=== PATIENT | female | born 1985 | race Caucasian/White ===

== ENCOUNTER 2021-11-05 06:11 | Inpatient (IN) | payer OTHER, SELFPAY ==
[2021-11-05] VITALS (87 sets, daily range): BP systolic 89–133; BP diastolic 44–92; PULSE 44–171; RESP 15–18; TEMP 36.4–37; O2SAT 90–100; BMI 27.8
[2021-11-05] MEDS: LACTATED RINGERS 1000 ML 1,000 ML 125 ML IV ×3 (06:59→15:34)
[2021-11-05] MEDS: AMPICILLIN 2 GM in 0.9 % SODIUM CHLORIDE Mini-bag 100 ML IVPB (07:04)
[2021-11-05] MEDS: OXYTOCIN 30 unit/500 ML in NS 30 UNIT/500 ML BAG IVPB (07:15)
--- NOTE | 2021-11-05 07:26 | P.OBHP_ITS ---
OB - H&P: HPI Labor/Induction History of Present Illness Chief complaint: MATERNITY : 3 Para: 1 Indications for induction: other (elective) Narrative: Peg Beaulieu is a 36 year old female History of Present Dating criteria: based on LMP care: good care Ultrasounds: normal 1st trimester US Medical complications: none Narrative: Louisa 3 P 1011 : Blayne; Son: Blayne Jade is her sister Flu vaccine: received Covid vaccine: recommended 05/05/21, declines 1. History of Gestational HTN with first . Sister has h/o pre E -recommended baby ASA 2. Genital warts present at first OB visit 3. Pilonidal cyst 06/02/2021: I&D - Dr. Ladd 4. EFW 94% and bilateral pelviectasis (5 mm on the right and 4 mm on the left) on anatomy scan. Repeat ultrasound 08/22/2021: EFW 63%, BPD 82%, HC >97%, FL 24%. Transverse, SDP 4.4 cm, renal pelves normal. 5. Elevated 1 hr GTT. 3 hr GTT entirely normal. Labs Blood type: O (+) positive GBS status: positive Review of Systems Status of ROS: Reports: 6 or more systems reviewed and unremarkable except as noted in History and below PFSH PFSH Social History Smoking Status: Never smoker Meds Home Medications and Allergies Home Medications Medication Instructions Recorded Confirmed Type [id number]-map-[id number]-FA 1 mg 1 tab PO DAILY PRN 11/05/21 11/05/21 History tablet Allergies Allergy/AdvReac Type Severity Reaction Status Date / Time No Known Drug Allergies Allergy Verified 11/05/21 08:41 OB - H&P: Exam Physical Exam: Vital signs: WNL Constitutional: Constitutional: no acute distress Routine HEENT Exam: Head: Present atraumatic and normal inspection Routine Neck Exam: Neck: Present full ROM Routine Respiratory Exam: Respiratory: Present CTA bilaterally Routine Cardiovascular Exam: Cardiovascular: RRR Routine Abdominal Exam: Comments: gravid Detailed Labor and Delivery Exam: Patient Gravid: yes Dilation (cm): 3 (per RN) Effacement (%): 60 Contraction frequency (min): 7 (4-7) Contraction intensity: Moderate Fetus (Single): Station: -2 Heart Rate Baseline: 130 Monitor Accelerations: Present Monitor Decelerations: None Environmental Solutions Engineer Variability: Moderate (11-25) Routine Extremities Exam: Extremities: Present normal inspection Routine Back/Spine/Pelvis Exam: Back/Spine: full ROM Routine Neurological Exam: Present alert and oriented X3 OB - Problem Based A/P Additional Plan (1) : Status: Acute Plan ASSESSMENT:? at 39.0 weeks gestation? GBS positive? Uncomplicated ? Elective IOL for social reasons ?? PLAN:? 1. Antibiotic prophylaxis treatment per protocol? 2. Plan made with Dr. Minaya in clinic for Pitocin and AROM after the second dose of antibiotics. Pt agreeable with this plan. Will plan for AROM around noon. 3. Candidate for analgesia of choice. Planning epidural. May have when desires. 4. Anticipate . ? Delivery/Labor/Induction Plan Plan: induction Induction method: per pitocin protocol
[2021-11-05 08:51] LABS: Hemoglobin* 13.2 gm/dL (12.0-16.0)
[2021-11-05 08:54] LABS: SARS PCR* Negative SARS-CoV-2 (Negative)
[2021-11-05] MEDS: ROPIVACAINE 0.2 % PF 10 ML INJ 20 MG EPIDURAL (09:36)
[2021-11-05] MEDS: ROPIVACAINE 0.2% 100 ml 100 ML 12 MG EPIDURAL (09:45)
--- NOTE | 2021-11-05 10:01 | P.ANBPRC_ITS ---
Anesthesia Procedures Epidural Insertion Patient Location: OB Start Time: 09:18 Stop Time: 10:18 Start Date: 11/05/21 Stop Date: 11/05/21 Reason for Block: primary anesthetic Patient Position: sitting Performed By: Daniel Swift Preanesthetic Checklist: IV checked, risks and benefits discussed, surgical consent, monitors and equipment checked, pre-op evaluation, timeout performed and anesthesia consent Prep: chlorhexidine gluconate Monitoring: blood pressure monitoring, dealer compliance representative, continuous pulse oximetry and heart rate Approach: midline Vertebral Space: lumbar (1-5) Epidural Technique: ESHA saline Needle Type: Tuohy needle Injection Technique: continuous shot (catheter) Needle gauge: 17 Needle Length (cm): 10 cm Needle Insertion Depth (cm): 5 Catheter Gauge: 19 Catheter Type: multi-orifice Catheter at skin depth (cm): 11 Test Dose Result: negative and lidocaine 1.5% with epinephrine 1 to 200,000
--- NOTE | 2021-11-05 10:03 | PM.ANPROEV ---
PFSH PFS Social History Smoking Status: Never smoker Meds Home Medications and Allergies Allergies Allergy/AdvReac Type Severity Reaction Status Date / Time No Known Drug Allergies Allergy Verified 11/05/21 08:41 Results Labs Labs: Short CBC 11/05/21 Range/Units 06:45 Hgb 13.2 (12.0-16.0) gm/dL Focused Exam Airway Mallampti: II TM distance: <3 FB Neck ROM: full Anesthesia Risk Status Procedure Time Seen by Provider: 09:17 Date Seen: 11/05/21 History Anesthesia history: epidural History of anesthesia reactions: No Family history of reaction to anesthesia: No Status Dentition: intact/complete Risk Assessed to be at risk for difficult intubation: No Assessment and Plan Assessment and plan (1) : Status: Acute Plan Ok for Epidural. Epidural placed without difficulty.
[2021-11-05] MEDS: AMPICILLIN 1 GM in 0.9 % SODIUM CHLORIDE Mini-bag 100 ML IVPB ×2 (10:50→14:54)
--- NOTE | 2021-11-05 12:50 | PM.OBPNL ---
Pain Control Pain control: epidural Contractions Monitor mode: External Contraction frequency: 4 (2-4) Contraction pattern: Regular Contraction intensity: Strong/Firm Pelvic Exam Dilation (cm): 8 (per RN) Effacement (%): 90 Fetus (Single) Station: 0 Amniotic Membrane Status: SROM (SROM during SVE) status: Category ll Comments: About a 2 min deceleration to the 90's immediately after SROM. Position changes and pitocin turned off. FSE applied. Return of baseline to 115-120 with good variability. Assessment and Plan Pitocin rate (mU/min): 0 Assessment: active labor and induction ongoing Plan: continue present management Comments: Assessment:?? 36 at 39 weeks gestation?? Patient is coping WELL with challenges of labor.?? Labor type: Induced, Active labor? Category 1 FHR pattern.?? Labor complicated by: Elective IOL for social reasons? ? Plan:?? Continue with routine intrapartum cares as ordered.?? Patient encouraged to change positions with assistance from the RN to promote physiologic labor and .?? Epidural in place and is working effectively. Denies pressure or urge to push Will reevaluate patient again as needed.?? Anticipate vaginal .?? ?
--- NOTE | 2021-11-05 17:31 | PM.OBPRCVD ---
Procedure Procedure Done: only Events: Labor Induction Intrapartal Events: Labor Induction Induction method: per pitocin protocol Delivery monitor: external FHT, external uterine and internal FHT Route of delivery: Episiotomy description: None Laceration description: Perineal - 1st Degree Delivery repair: Vicryl Estimated blood loss (mL): 225 Anesthesia type: Epidural Disposition: floor [place] Infant Infant Gender: Male presentation: vertex Placental Delivery Description: Spontaneous Cord Description: 3 Vessels [place] A Gender: Male Placental Delivery: Spontaneous Cord Description: 3 Vessels OB Vag Delivery Procedures Additional Procedures Laceration Repair: Yes Procedure Details: Patient is a 36 year-old admitted on Nov 03, 2021 at 23:40 at 39 Weeks, 2 Days gestation for elective IOL.? Cervical exam on admission was 3 cm/60 % effaced/-2 station with membranes intact in vertex presentation.? Contractions were every 4-6 minutes.? heart rate demonstrated baseline 120 bpm with moderate variability, + accelerations, - decelerations; a category 1 tracing.? SROM occurred at 1235 with clear fluid.? ?? Labor Analgesia:? Epidural? ?? Pitocin:? Yes for IOL and ? ?? Labor onset:? 0800? ?? Complete:? 1554? ?? Pushing:? 1603? ?? heart tones during second stage were baseline of 100-115 with moderate variability. Variable decels to the 80-90's. Good return to baseline with position changes.? ?? At 1607 a viable male infant delivered in vertex MARILU presentation over intact perineum via spontaneous vaginal delivery.? was placed on maternal abdomen.? Cord was clamped and cut after a 60-120 second delay.? Nose and mouth were bulb suctioned.? Infant weight pending.? 9 at 1 minute and 9 at 5 minutes.? Shoulder dystocia: no.? Nuchal cord: no.? ?? Placenta delivered spontaneously and complete at 1637 with a 3 vessel cord.? ?? Mother and were stable after delivery.? ?? Lacerations:? 1st degree perineal, repaired with 3.0 Vicryl.? ?? Blood loss: 225 mL.? Blood loss measurement type: QBL ? ?? Sponge and needles counts are correct.?
[2021-11-05] MEDS: IBUPROFEN 600 MG TABLET PO (20:05)
[2021-11-06] MEDS: ACETAMINOPHEN 500 MG TABLET 1000 MG PO (00:16)
[2021-11-06 00:31] VITALS: BP 118/84; PULSE 90; RESP 16; TEMP 36.4; O2SAT 98
[2021-11-06 04:36] VITALS: BP 127/80; PULSE 83; RESP 16; TEMP 36.3; O2SAT 96
[2021-11-06] MEDS: IBUPROFEN 600 MG TABLET PO (04:57)
[2021-11-06 07:33] LABS: Hemoglobin* 11.4 gm/dL (12.0-16.0)
--- NOTE | 2021-11-06 08:55 | P.DS_ITS ---
DS: Providers Provider Date of admission: 11/05/21 06:11 Primary care physician: Not a Local Provider Admitting Clinician: Elma Minaya MD Attending Physician on discharge: Elma Minaya MD DS: Diagnosis Discharge Diagnosis (1) : Status: Acute Exam Narrative: Exam Narrative: Discharge Examination GENERAL APPEARANCE: normal affect, alert, no distress MOOD: appropriate CHEST: clear to auscultation HEART: regular rate and rhythm ABDOMEN: soft, non-tender the uterine fundus is 2 cm Below Umbilicus, Midline and is appropriate for the stage of recovery. PERINEUM: mild edema of the perineum, there is a 1st degree that is healing well. EXTREMITIES: normal and no edema Discharge Criteria Patient has no complaints Minimal active bleeding Doing well Pt is very worried about anxiety in the immediate PP period. Her was recently in a bad motorcycle accident and will not be able to help at all. Encouraged her to wait until her 2 week PP follow up visit but she would like to start medication now. Prescription for Zoloft sent. She is requesting discharge home. Const: Vital Signs, click to edit/add: Vital Signs - 24 hr 11/05/21 09:14 11/05/21 09:16 11/05/21 09:22 Temperature 97.7 F Pulse Rate 88 88 Pulse Rate [Right Pulse Oximeter] Respiratory Rate 16 Blood Pressure 119/81 119/81 Blood Pressure [Le ft Arm] Pulse Oximetry 98 11/05/21 09:27 11/05/21 09:31 11/05/21 09:32 Temperature Pulse Rate 100 Pulse Rate [Right Pulse Oximeter] Respiratory Rate Blood Pressure 123/81 Blood Pressure [Le ft Arm] Pulse Oximetry 100 99 11/05/21 09:33 11/05/21 09:35 11/05/21 09:37 Temperature Pulse Rate 90 98 111 H Pulse Rate [Right Pulse Oximeter] Respiratory Rate Blood Pressure 118/78 110/77 99/74 Blood Pressure [Le ft Arm] Pulse Oximetry 98 11/05/21 09:39 11/05/21 09:41 11/05/21 09:42 Temperature Pulse Rate 97 96 Pulse Rate [Right Pulse Oximeter] Respiratory Rate Blood Pressure 104/62 103/64 Blood Pressure [Le ft Arm] Pulse Oximetry 98 11/05/21 09:46 11/05/21 09:47 11/05/21 09:51 Temperature Pulse Rate 98 107 H Pulse Rate [Right Pulse Oximeter] Respiratory Rate Blood Pressure 96/57 L 106/56 L Blood Pressure [Le ft Arm] Pulse Oximetry 98 11/05/21 09:52 11/05/21 09:56 11/05/21 09:57 Temperature Pulse Rate 96 Pulse Rate [Right Pulse Oximeter] Respiratory Rate Blood Pressure 105/60 Blood Pressure [Le ft Arm] Pulse Oximetry 98 98 11/05/21 10:01 11/05/21 10:02 11/05/21 10:07 Temperature Pulse Rate 108 H Pulse Rate [Right Pulse Oximeter] Respiratory Rate Blood Pressure 102/57 L Blood Pressure [Le ft Arm] Pulse Oximetry 98 98 11/05/21 10:08 11/05/21 10:12 11/05/21 10:17 Temperature Pulse Rate 87 112 H 111 H Pulse Rate [Right Pulse Oximeter] Respiratory Rate Blood Pressure 98/61 105/71 89/54 L Blood Pressure [Le ft Arm] Pulse Oximetry 99 97 11/05/21 10:22 11/05/21 10:24 11/05/21 10:27 Temperature 97.7 F Pulse Rate 80 Pulse Rate [Right Pulse Oximeter] Respiratory Rate Blood Pressure 97/57 L Blood Pressure [Le ft Arm] Pulse Oximetry 99 98 11/05/21 10:32 11/05/21 10:34 11/05/21 10:37 Temperature Pulse Rate 88 Pulse Rate [Right Pulse Oximeter] Respiratory Rate Blood Pressure 94/58 L Blood Pressure [Le ft Arm] Pulse Oximetry 98 97 11/05/21 10:41 11/05/21 10:46 11/05/21 10:50 Temperature Pulse Rate 90 Pulse Rate [Right Pulse Oximeter] Respiratory Rate Blood Pressure 97/62 Blood Pressure [Le ft Arm] Pulse Oximetry 98 99 11/05/21 10:51 11/05/21 10:56 11/05/21 11:01 Temperature Pulse Rate Pulse Rate [Right Pulse Oximeter] Respiratory Rate Blood Pressure Blood Pressure [Le ft Arm] Pulse Oximetry 99 99 100 11/05/21 11:04 11/05/21 11:06 11/05/21 11:11 Temperature Pulse Rate 83 Pulse Rate [Right Pulse Oximeter] Respiratory Rate Blood Pressure 104/56 L Blood Pressure [Le ft Arm] Pulse Oximetry 99 99 11/05/21 11:16 11/05/21 11:25 11/05/21 11:34 Temperature Pulse Rate 91 82 Pulse Rate [Right Pulse Oximeter] Respiratory Rate Blood Pressure 118/70 115/71 Blood Pressure [Le ft Arm] Pulse Oximetry 100 11/05/21 11:50 11/05/21 12:04 11/05/21 12:19 Temperature Pulse Rate 83 80 83 Pulse Rate [Right Pulse Oximeter] Respiratory Rate Blood Pressure 112/69 108/72 107/71 Blood Pressure [Le ft Arm] Pulse Oximetry 11/05/21 12:34 11/05/21 12:45 11/05/21 12:49 Temperature 97.6 F Pulse Rate 96 84 Pulse Rate [Right Pulse Oximeter] Respiratory Rate Blood Pressure 110/79 105/66 Blood Pressure [Le ft Arm] Pulse Oximetry 11/05/21 13:04 11/05/21 13:20 11/05/21 13:34 Temperature Pulse Rate 84 82 83 Pulse Rate [Right Pulse Oximeter] Respiratory Rate Blood Pressure 103/65 97/59 L 97/57 L Blood Pressure [Le ft Arm] Pulse Oximetry 11/05/21 13:50 11/05/21 14:05 11/05/21 14:09 Temperature 97.9 F Pulse Rate 78 79 Pulse Rate [Right Pulse Oximeter] Respiratory Rate Blood Pressure 92/58 L 106/62 Blood Pressure [Le ft Arm] Pulse Oximetry 11/05/21 14:19 11/05/21 14:34 11/05/21 14:49 Temperature Pulse Rate 81 77 85 Pulse Rate [Right Pulse Oximeter] Respiratory Rate Blood Pressure 104/64 106/60 102/68 Blood Pressure [Le ft Arm] Pulse Oximetry 11/05/21 15:05 11/05/21 15:22 11/05/21 15:35 Temperature Pulse Rate 85 88 88 Pulse Rate [Right Pulse Oximeter] Respiratory Rate Blood Pressure 110/63 113/77 128/71 Blood Pressure [Le ft Arm] Pulse Oximetry 11/05/21 15:49 11/05/21 16:05 11/05/21 16:34 Temperature Pulse Rate 81 44 L 82 Pulse Rate [Right Pulse Oximeter] Respiratory Rate Blood Pressure 107/66 133/76 112/78 Blood Pressure [Le ft Arm] Pulse Oximetry 11/05/21 16:36 11/05/21 16:37 11/05/21 16:52 Temperature 97.8 F Pulse Rate 77 Pulse Rate [Right Pulse Oximeter] 77 77 Respiratory Rate 16 15 Blood Pressure 111/76 Blood Pressure [Le ft Arm] 112/78 125/44 L Pulse Oximetry 90 100 11/05/21 16:53 11/05/21 16:54 11/05/21 17:07 Temperature Pulse Rate 171 H Pulse Rate [Right Pulse Oximeter] 82 Respiratory Rate 16 Blood Pressure 125/44 L Blood Pressure [Le ft Arm] 120/77 Pulse Oximetry 100 95 11/05/21 17:08 11/05/21 17:21 11/05/21 17:22 Temperature Pulse Rate 82 82 Pulse Rate [Right Pulse Oximeter] 82 Respiratory Rate 16 Blood Pressure 120/77 119/76 Blood Pressure [Le ft Arm] 119/76 Pulse Oximetry 11/05/21 17:36 11/05/21 17:37 11/05/21 17:51 Temperature Pulse Rate 88 Pulse Rate [Right Pulse Oximeter] 88 100 Respiratory Rate 17 16 Blood Pressure 119/77 Blood Pressure [Le ft Arm] 119/76 113/82 Pulse Oximetry 11/05/21 17:52 11/05/21 18:08 11/05/21 18:21 Temperature 98.6 F Pulse Rate 100 98 Pulse Rate [Right Pulse Oximeter] 98 101 H Respiratory Rate 17 16 Blood Pressure 113/82 119/68 Blood Pressure [Le ft Arm] 119/68 105/61 Pulse Oximetry 11/05/21 18:22 11/05/21 18:37 11/05/21 18:52 Temperature Pulse Rate 101 H 97 99 Pulse Rate [Right Pulse Oximeter] Respiratory Rate Blood Pressure 105/61 117/74 114/73 Blood Pressure [Le ft Arm] Pulse Oximetry 11/05/21 20:08 11/06/21 00:31 11/06/21 04:36 Temperature 97.8 F 97.6 F 97.4 F L Pulse Rate Pulse Rate [Right Pulse Oximeter] 89 90 83 Respiratory Rate 16 16 16 Blood Pressure Blood Pressure [Le ft Arm] 106/73 118/84 127/80 Pulse Oximetry 98 96 Common normals: no apparent distress, average body habitus, oriented x3, no limitations, healthy appearing, alert and well nourished HENMT: Common normals: normocephalic, head/scalp atraumatic, external ears normal and external nose normal Head and scalp: normocephalic and atraumatic Face and sinus: normal facial exam Nose: external nose normal External ear: external ears normal Eye: General eye: normal appearance of both eyes Neck & C-Spine: Common normals: full ROM Resp: Common normals: normal respiratory effort, no retractions, no use of accessory muscles, clear to auscultation bilaterally and percussion normal Auscultation: clear to auscultation bilaterally Percussion: percussion normal Cardio: Common normals: regular rate, regular rhythm, S1 normal heart sound, S2 normal heart sound, no gallops, no clicks, no murmurs and no rub Rate: regular rate Rhythm: regular rhythm Heart sounds: S1 normal and S2 normal GI: Common normals: Normal to inspection, nondistended, normoactive bowel sounds present Neuro: Common normals: oriented x3 Sensorium/orientation: alert OB - DS: Summary Peripartum Data Infant delivery method: Vaginal Laceration description: Perineal - 1st Degree Episiotomy description: None complications: none [place] Gender: Male Infant Discharge Plan: Home A Gender: Male Time Spent with Patient Time attestation: Total time spent providing and/or coordinating discharge services: Time spent: Less than 30 minutes Discharge Plan Discharge Disposition: Home, Self-Care Date of Admission: 11/05/21 06:11 Attending Provider on Discharge: Meghann Bales Primary Care Provider: Provider,Not a Local Condition: Stable Anticipated Discharge Date/Time: 11/06/21 18:00 Discharge Medications: New acetaminophen 500 mg Tablet 1,000 mg PO Q6H PRNQty: 10 0RF docusate sodium 100 mg Capsule 100 mg PO DAILY Qty: 100 0RF Rx Instructions: Take 1-2 tablets daily as needed for constipation. ibuprofen 600 mg Tablet 600 mg PO Q6H PRNQty: 60 0RF sertraline [Zoloft] 25 mg tablet 25 mg PO DAILY Qty: 14 0RF Continued teucfrmp-bnc-Iq-FA 1 mg tablet 1 tab PO DAILY PRN0RF Discharge Orders: Discharge Order (Routine); Ordered 11/06/21 Ordered By: Meghann Bales Patient Education: OB Vaginal/Bottle Feeding Activity Level: No Restrictions and Activity as Tolerated Discharge Diet: Regular Referrals: Provider,Not a Local [Primary Care Provider] - Forms: [employer] Info Instructions Discharge Comment: Follow up in the clinic in 2 and 6 weeks.
[2021-11-06 09:00] VITALS: BP 117/80; PULSE 73; RESP 16; TEMP 36.4
[2021-11-06 12:30] VITALS: BP 126/81; PULSE 86; RESP 16; TEMP 36.6
[2021-11-06 16:20] VITALS: BP 107/73; PULSE 86; RESP 16; TEMP 36.5; O2SAT 98
== END 2021-11-06 17:51 | disposition home or self-care (01) | DRG 560 ==
PROVIDERS: Advanced Practice Midwife; Admitting Provider Obstetrics & Gynecology; Visit Provider Obstetrics & Gynecology
DX: O99.824 Streptococcus B carrier state complicating childbirth (principal); O70.0 First degree perineal laceration during delivery; Z3A.38 38 weeks gestation of pregnancy; Z86.32 Personal history of gestational diabetes; Z37.0 Single live birth
CPT/HCPCS: 1967; 36415; 85018; 86850; 86900; 86901; 87635; 88307; A9270; J0290; J2795; J7120

== ENCOUNTER 2023-10-13 06:55 | Day surgery (SDC) | payer OTHER, SELFPAY ==
[2023-10-13] VITALS (14 sets, daily range): BP systolic 111–132; BP diastolic 76–92; PULSE 82–100; RESP 16–20; TEMP 36.1–36.7; O2SAT 94–99; BMI 28.5
--- OUTSIDE RECORDS SUMMARY | 2023-10-13 06:56 | XMS_ITS | Encounter Summary ---
Author Organization [facility] er Address [address] [place] [address] Care Team Providers Care Group Fitness Department Head Name Role Phone Unavailable Primary Care Provider Unavailabl e Reason for Visit * Reason Comments Hand Pain Left hand digit #3, possible infection Encounter Details Date Type Department Care Team (Late st Contact Info) Description 09/15/2023 9:40 AM CDT Office Visit [address] [address] Carrillo Frederick, DNP, SOLE BUFFER, AIR CREW SUPERVISOR [address] [place] [address] [address] [place], [place] [address] Paronychia of finger of left hand (Primary Dx); Dermatitis Social History Tobacco Use Types Packs/Day Years Used Date Smoking Tobacco: Former Cigarettes Smokeless Tobacco: Never Alcohol Use Standard Drinks/Week Comments Yes 0 (1 standard drink = 0.6 oz pur e alcohol) very social/casual Sex and Gender Information Value Date Recorded Sex Assigned at Not on file Gender Identity Not on file Sexual Orientation Not on file documented as of this encounter Last Filed Vital Signs Vital Sign Reading Time Taken Comments Blood Pressure 127/86 09/15/2023 9:38 AM CDT Pulse 88 09/15/2023 9:38 AM CDT Temperature 36.8 ??C (98.2 ??F) 09/15/2023 9:38 AM CD T Respiratory Rate 16 09/15/2023 9:38 AM CDT Oxygen Saturation 97% 09/15/2023 9:38 AM CDT Inhaled Oxygen Concentration - - Weight 70.1 kg (154 lb 8 oz) 09/15/2023 9:38 AM CDT Height 156 cm (5' 1.42) 09/15/2023 9:38 AM CDT Body Mass Index 28.8 09/15/2023 9:38 AM CDT documented in this encounter Patient Instructions * Attachments The following attachments cannot be sent through Care Everywhere. * Paronychia ([place]) documented in this encounter Progress Notes * Carrillo Frederick, DNP, SOLE BUFFER, AIR CREW SUPERVISOR - 09/15/2023 9:40 AM CDT Subjective Patient ID: Peg Beaulieu is a 38 y.o. female. Chief Complaint Patient presents with Hand Pain Left hand digit #3, possible infection The patient presents to the clinic for an infection of her finger. Onset was yesterday. It feels tender, throbbing, and painful. 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 She would like the infection drained if able. Hand Pain The following portions of the patient's chart were reviewed in this encounter and updated as appropriate: Tobacco Allergies Meds Problems Med Hx Surg Hx OB Status Fam Hx Soc Hx Review of Systems Skin: Positive for wound. Objective Physical Exam Vitals and nursing note reviewed. Constitutional: General: She is not in acute distress. Appearance: Normal appearance. She is not diaphoretic. HENT: Head: Normocephalic and atraumatic. Nose: Nose normal. Eyes: Conjunctiva/sclera: Conjunctivae normal. Cardiovascular: Rate and Rhythm: Normal rate and regular rhythm. Pulmonary: Effort: Pulmonary effort is normal. No respiratory distress. Breath sounds: No wheezing. Skin: General: Skin is dry. Comments: Left distal 3rd digit erythema, edema and tenderness to radial-side of nail. No drainage.Inflammation distal to DIP. All nails have degrees of chronic inflammation to cuticles. Neurological: Mental Status: She is alert and oriented to person, place, and time. Psychiatric: Mood and Affect: Mood normal. Behavior: Behavior normal. Judgment: Judgment normal. Needle Aspiration Procedure Note Indications: Paronychia, <2 cm Anesthesia: Declined Procedure Details The Procedure, risks and complications have been discussed in detail (including, but not limited tobleeding, infection, pain, scar formation, need for further surgical procedures) with the patient, verbal consent obtained. The skin was prepped with povidone iodine swabs. Needle Aspiration was performed with a tuberculin-size syringe. Scant purulent and bloody drainage expressed with some pain, <1ml. Mild relief of pain. EBL: <1 ml. Band-aid dressing. Condition: Stable Complications: none. Improvement in pain reported. Assessment/Plan Diagnoses and all orders for this visit: Paronychia of finger of left hand - cephalexin (Keflex) 500 MG capsule; Take 1 capsule (500 mg total) by mouth 4 (four) times a day for 7 days Dermatitis - triamcinolone (KENALOG) 0.1 % ointment; Apply topically 2 (two) times a day if needed for irritation or rash Paronychia. Needle aspiration performed with mild improvement. Start Keflex now. Epsom salt soaks recommended. Dermatitis to all fingertips at base of nail. She has used triamcinolone in the past. This was renewed. If improvement, will refill as needed. If no improvement, recommend follow-up to discuss medium-high potency type topical steroid ointments. documented in this encounter Plan of Treatment Not on file documented as of this encounter Visit Diagnoses Diagnosis Paronychia of finger of left hand- Primary Dermatitis Contact dermatitis and other eczema, due to unspecified cause documented in this encounter
--- OUTSIDE RECORDS SUMMARY | 2023-10-13 06:56 | XMS_ITS | Clinical Summary ---
Author Organization [facility] er Address [address] [place] [address] Care Team Providers Care [place] Name Role Phone Unavailable Primary Care Provider Unavailabl e Allergies No known active allergies Medications Medication Sig Dispensed Refills Start Date End Date Status ibuprofen (ADVIL) 200 MG tablet Take 1 tablet (200 mg total) by mouth every 6 (six) hours if needed for mild pain Take with food. Active acetaminophen (TYLENOL) 500 MG tablet Take by mouth every 6 (six) hours if needed for mild pain Active triamcinolone (KENALOG) 0.1 % ointmentIndicatio ns:Dermatitis Apply topically 2 (two) times a day if needed for irritation or rash 80 g 09/15/2023 01/13/2024 Active cephalexin (Keflex) 500 MG capsuleIndication s:Paronychia of finger of left hand Take 1 capsule (500 mg total) by mouth 4 (four) times a day for 7 days 28 capsule 09/15/2023 09/22/2023 Active Problems No known active problems Encounters Date Type Department Care Team Description 09/15/2023 9:40 AM CDT Office Visit [address] [id number] Carrillo Frederick, DNP, VICE PRESIDENT OF COMPLIANCE, PHYSICAL THERAPY COORDINATOR Paronychia of finger of left hand (Primary Dx); Dermatitis from Last 3 Months Immunizations Name Administration Dates Next Due Tdap 09/01/2021 Family History Medical History Relation Comments No Known Problems Father Motorcycle acc ident No Known Problems Mother Relation Status Comments Father Mother Alive Social History Tobacco Use Types Packs/Day Years Used Date Smoking Tobacco: Former Cigarettes Smokeless Tobacco: Never Alcohol Use Standard Drinks/Week Comments Yes 0 (1 standard drink = 0.6 oz pur e alcohol) very social/casual Sex and Gender Information Value Date Recorded Sex Assigned at Not on file Gender Identity Not on file Sexual Orientation Not on file Last Filed Vital Signs Vital Sign Reading [...] Mass Index 28.8 09/15/2023 9:38 AM CDT Plan of Treatment Health Maintenance Due Date Last Done Comments COVID-19 Vaccine ( season) 2023 Influenza Vaccine (Season Ended) 2024 Pap Smear 04/07/2024 04/07/2021, 02/17/2018 DTaP,Tdap,and Td Vaccines (6 - Td or Tdap) 09/02/2031 09/01/2021, 12/23/2017, 02/24/2013, Additional history exists HPV Vaccines Aged Out No longer eligi ble based on patient's age to complete this topic Pneumococcal Vaccine: Pediatrics (0 to 5 Years) and At-Risk Patients (6 to 64 Years) Aged Out No longer eligible based on patient's age to complete this topic Procedures Procedure Name Priority Date/Time Associated Diagnosis Comments PAP TEST Routine 04/07/2021 12:00 PM ZIGZAG ELASTIC ATTACHER from Last 3 Months or Most Recently Relevant to Health Maintenance
[2023-10-13 07:11] LABS: Ur HCG Qualitative* Negative (Negative)
--- NOTE | 2023-10-13 07:17 | W.PM.H&PU ---
History & Physical Update History & Physical Update H&P Reviewed and patient assessed: No changes noted
--- NOTE | 2023-10-13 07:23 | SUR.PREOP ---
correction: site is elbow, not wrist
[2023-10-13] MEDS: SODIUM CHLORIDE 0.9 % (FLUSH) 10 ML SYRINGE IVF (07:30)
[2023-10-13] MEDS: LACTATED RINGERS 1000 ML 1,000 ML 100 ML IV (07:30)
[2023-10-13] MEDS: MIDAZOLAM HCL 1 MG/ML inj IVP (08:20)
[2023-10-13] MEDS: fentaNYL 100 MCG/2 ML inj IVP (08:20)
--- NOTE | 2023-10-13 08:24 | SUR.PREOP ---
TIME?OUT:?0818 PT/RN/MDA?VERIFICATION?OF?SURGICAL?SITE,?PROCEDURE,?AND?CONSENT OBTAINED?PRIOR?TO?INVASIVE?PROCEDURE. all in agreement
[2023-10-13] MEDS: CEFAZOLIN 2 GM in 0.9 % SODIUM CHLORIDE Mini-bag 100 ML IVPB (09:04)
--- NOTE | 2023-10-13 09:30 | CRLHL7_ITS ---
For Patients: As a result of the Cures Act, medical imaging exams and procedure reports are released immediately into your electronic medical record. You may view this report before your referring provider. If you have questions, please contact your health care provider. Indication: Left radial head ORIF Technique: Four fluoroscopic images of the left elbow. Fluoroscopic time 6.5 seconds. IMPRESSION: Fluoroscopic guidance for open reduction internal fixation of radial head fracture. Fixation screws also present within the lateral humeral epicondyle. Dictated by Jordy Guerrero MD @ 10/14/2023 10:43:54 AM (Electronically Signed)
--- NOTE | 2023-10-13 09:38 | W.PM.NB ---
Nerve Block Nerve Block Time Seen by Provider: 08:20 Date Seen: 10/13/23 Type of block requested by surgeon for post-operative analgesia: supraclavicular Side: left Time out performed: Yes Verification of patient name: Yes Verification of date of : Yes Site marking: site marked Name of person performing procedure: Jamison Continuous monitoring Was continuous monitoring of O2 sat, B/P, dry charge process attendant, recorded every 15 minutes?: Yes Procedure Checklist: sterile prep, needles and gloves Ultrasound guided. Images saved: Yes Medications given in 5ml increments after negative aspiration: Ropivicaine %: 0.5 mL: 20 Needle gauge: 22 Decadron (mg): 10 Precedex (mcg): 25 Patient tolerated procedure well: Yes Block Charges Block Charge (with Pro Fee): Brachial Plexus Use of Ultrasound Machine for Block: Yes- US Guidance/pain block
--- NOTE | 2023-10-13 09:39 | W.ANESCHARGE ---
Anesthesia Charges Start Date/Time Anesthesia Start Date: 10/13/23 Anesthesia Start Time: 08:51 Stop Date/Time Anesthesia Stop Date: 10/13/23 Anesthesia Stop Time: 10:46
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
--- NOTE | 2023-10-13 10:51 | W.ANESCHARGE ---
Anesthesia Charges Start Date/Time Anesthesia Start Date: 10/13/23 Anesthesia Start Time: 08:51 Stop Date/Time Anesthesia Stop Date: 10/13/23 Anesthesia Stop Time: 10:46
== END 2023-10-13 12:03 | disposition home or self-care (01) ==
LOC: OR 06:55
PROVIDERS: PCP Nurse Practitioner Family; Visit Provider Orthopaedic Surgery Sports Medicine
PROC: (CPT 24665; principal; 2023-10-13 09:30)
DX: S52.122A Displaced fracture of head of left radius, initial encounter for closed fracture (principal); S42.452A Displaced fracture of lateral condyle of left humerus, initial encounter for closed fracture; G89.18 Other acute postprocedural pain
CPT/HCPCS: 24665; 24575; 01730; 01740; 64415; 73070; 76000; 76942; 81025; A4580; C1713; J0690; J1100; J2250; J2405; J2704; J2795; J3010; J7120

== ENCOUNTER 2024-02-09 14:15 | Outpatient (RCR) | payer OTHER, SELFPAY ==
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
--- NOTE | 2024-02-03 18:47 | OT.OPODN ---
OT Outpatient Ortho Daily Note OT Outpatient Ortho Daily Note* Start: 10/27/23 08:09 Freq: Status: Active Protocol: Document 02/03/24 18:34 AMB (Rec: 02/03/24 18:47 AMB [id number]) E-signed By Jaylene Donahue, OTR/L, CLT, [employer] Type of Note Type of Note Type of Note Daily Note,Recert/Progress Note Visit Number [id number] Insurance Information Other Insurance [facility] Insurance Information Comments Cert due 01/25/24 Outpatient History/Precautions Current Condition/Medical Diagnosis Referring Provider Dr Gonsalves Medical Diagnoses S42.402A - Unspecified fracture of lower end of left humerus, initial encounter for closed fracture Treatment Diagnosis Pain, weakness, limited AROM in the LUE following radial head fx s/p ORIF Date of Onset DOI: 09/25/23, DOS: 10/13/23 Precautions Lifting Restrictions,Range of Motion Other Precautions Gentle range of motion between 30-115 and pronation/ supination free as tolerated. Extreme caution for the patient to avoid load bearing activities. Other Conditions PMH (copied from medical chart ): Active Problems (Reviewed @ 08:30 by Adeola Guzmán) Perforation of left tympanic membrane (Acute) H72.92 - Unspecified perforation of tympanic membrane, left ear (ICD-10) Left elbow fracture (Acute) Displaced intra-articular fracture of the radial head at the volar aspect S42.402A - Unspecified fracture of lower end of left humerus, initial encounter for closed fracture (ICD-10) Medical History (Reviewed @ 08:30 by Adeola Guzmán) History of uveitis Z86.69 - Personal history of other diseases of the nervous system and sense organs (ICD- 10) Surgical History (Reviewed @ 08:30 by Adeola Guzmán) History of open reduction and internal fixation (ORIF) procedure (10/12/23) Z98.890 - Other specified postprocedural states (ICD-10) History of wisdom tooth extraction K08.409 - Partial loss of teeth, unspecified cause, unspecified class (ICD-10) Medical/Functional History Medical History Reviewed Yes Social History 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 Pt continues to work on her HEP for stretching and strengthening. Pt states her elbow started clicking yesterday, states it does not hurt but clicks sometimes, states it's at random times. OT OP Daily Ortho Note/Assessment Manual Therapy Manual Therapy Minutes (minutes) 35 Manual Therapy Comments Treatment focus is strictly related to manual therapy including STM, myofascial release and joint mobilizations to improve ROM of the LUE elbow and forearm. Provided MT to the LUE forearm , elbow, upper arm, for mm relaxation and tissue mobility followed by AAROM/PROM of the LUE elbow flex, ext, forearm pronation and supination. Gentle mobilization / joint distraction to wrist and elbow . MT with MFR and TPR into triceps mm, as well as focused manual stretch to pronator teres and pronator quadratus note significant tightness and adhesions here as well. Also provided IASTM with Graston tool to the volar forearm, elbow, and upper arm in order to promote healing, breakdown of scar tissue, reduce adhesions and decrease fascial restrictions as well as promote blood flow and decreased inflammation. Total Occupational Therapy Time Occupational Therapy Minutes 35 Home Program Home Program Home Program Compliant Home Program Specifics 01/24/24 Progressed supine triceps, seated biceps and pro /sup to 2# resistance 01/04/24 Added supine active triceps extension with gravity resistance. 12/29/23 Upgraded resisted elbow exs to red TB, added stretch into extension with distraction (pull stretch) 12/16/23 Added light resisted elbow flex, ext and chest press with yellow TB and passive pronation / supination stretch to HEP. 12/07/23 Added wrist-based thumb spica to rest APL and EPB, also added joint distracted elbow extension stretch to HEP. 11/25/23 Added nighttime resting splint. 10/29/23 Added pendulums. 10/27/23 Provided training and practice iin HEP for AROM of the LUE hand, wrist, forearm, elbow, and shoulder. Following demo, pt is able to complete all exs with minimal cues and encouragement. Pt was provided with written instructions for use at home as well. Emphasis was placed on limited AROM of the elbow flexion to >115 and ext >30 (surgeons recommendation), provided visual of what this looks like as well. Goniometric Comments Goniometric Comments Goniometric Comments 02/03/24 AROM of LUE elbow following stretch: -15-130, supination is 50 01/07/24 AROM following stretch Elbow: -17-125, supination is 40. 8/ AROM of the LUE elbow prior to stretch -34-120, supination prior to stretch 45 . AROM of MCKENNA elbow following stretch -20-125, supination 35. 8/07/03 AROM of the LUE: Elbow: Flex:130 Ext:-13 Forearm: Pronation: 90 Supination: 45 Wrist: Flex:90 Ext:85 UD:40 RD:30 Hand: Pt is able to complete full composite fist, full finger extension of all digits and full opposition. Hand Pinch/Assistant Branch Operations Manager Strength Hand Pinch/Assistant Branch Operations Manager Strength Hand Pinch/Assistant Branch Operations Manager Strength Left Hand,Right Hand Left Hand Assistant Branch Operations Manager Strength Position 1 in Elbow 51 Flexion (lbs) Lateral Pinch Strength (lbs) 13 Three Point Pinch (lbs) 13 Right Hand Assistant Branch Operations Manager Strength Position 1 in Elbow 68 Flexion (lbs) Lateral Pinch Strength (lbs) 15 Three Point Pinch (lbs) 17 OT Problems Problems Problems Decreased Strength,Decreased Range of Motion,Pain,Lifting, Gripping,Pinching Other Problems Opening Containers,Dressing, Computer,Fasteners,Sleeping Patient Potential Good Assessment Assessment Assessment Pt continues to show slow but steady progress, noting improved elbow flex, ext and forearm supination following stretch. 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 Pt is also bothered by the fact that her elbow sticks out when she walks. Pt is very motivated and compliant with her program and would like to continue with her OT. Occupational Therapy Treatment Plan - OP Potential Rehabilitation Potential Good Set Goals Goals Set with Patient Yes Goals Goals 1. Pt will be independent and compliant with HEP in order to resume full, pain-free use of the involved UE. 3 weeks 2. Pt will demonstrate full, pain-free AROM of the involved UE in order to improve ability to grasp and hold. 6 weeks 3. 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 8 weeks. Treatment Plan Treatment Plan Evaluation,Edema Control,Joint Mobilization,Manual Therapy, Splinting,Ultrasound,Wound Care/Scar Management, Therapeutic Exercise, Therapeutic Activities,Self Care/Home Management,Education Expected Frequency 1-2x Week Expected Duration 8-10 Weeks Occupational Therapy Billing Units Treatment Minutes Timed Treatment Minutes 35 Total Treatment Minutes 35 Billing Units Manual Therapy 2 Certification Statement Certification Statement I Certify That: Therapy Services Provided, Therapy Plan Established, Therapy Plan Reviewed Recertification Information Recertification Information Initial Certification Date 10/27/23 Recertification Start Date 01/25/24 Recertification Due Date 04/24/24 Reasons to Continue Skilled Therapy Pt will benefit from continued skilled OT intervention in order to restore functional strength and ROM of her LUE elbow and forearm. Rehabilitation Potential Good Click To Default 'Per treatment plan' Per treatment plan Continued Plan of Care and Interventions Per treatment plan Provider Signature Required Yes Provider Signature Shows Agreement With POC & Medical Necessity Physician NPI Number Write NPI# Here Physician Comment/Change Comment or Changes Physician Signature & Date Requested Please Sign/Date Here
== END 2024-06-08 23:59 | disposition home or self-care (01) ==
PROVIDERS: PCP Nurse Practitioner Family; Visit Provider Orthopaedic Surgery Sports Medicine
DX: S42.402A Unspecified fracture of lower end of left humerus, initial encounter for closed fracture (principal); R53.1 Weakness; Z74.09 Other reduced mobility; Z98.890 Other specified postprocedural states; Z51.89 Encounter for other specified aftercare
CPT/HCPCS: 97110; 97140; 97165; L3702; X5282